=== PATIENT | male | born 1975 | race Caucasian/White ===

== ENCOUNTER 2023-09-23 13:00 | Outpatient (RCR) | payer BC, SELFPAY | END 2024-01-21 23:59 | disposition home or self-care (01) | PROVIDERS: Visit Provider Urology | DX: R39.9 Unspecified symptoms and signs involving the genitourinary system (principal); Z51.89 Encounter for other specified aftercare | CPT/HCPCS: 97110; 97140; 97162 ==

== ENCOUNTER 2024-04-13 06:54 | Emergency (ER) | payer BC, SELFPAY ==
[2024-04-13 06:59] VITALS: BP 141/103; PULSE 72; RESP 16; TEMP 36.2; O2SAT 96; BMI 25.8
--- NOTE | 2024-04-13 07:14 | ED.GENADULT ---
HPI - General Adult General Chief complaint: Syncope/Fainted <Cammy Batista MD - Last Filed: 04/14/24 23:53> Stated complaint: fainted this morning, hit face <Cammy Batista MD - Last Filed: 04/14/24 23:53> Time Seen by Provider: 04/13/24 07:07 <Cammy Batista MD - Last Filed: 04/14/24 23:53> History of Present Illness HPI narrative: 49-year-old male presents the emergency department with inability to open and close his jaw. He reports that he felt nauseated after use of a phosphodiesterase inhibitor and went to the bathroom. He had a syncopal episode and fell to the ground. His heard him fall and attended to him quickly. He was only out a couple of seconds and there was really no evidence of seizure-like activity or any other alarming symptoms. He was able to get up and get back to bed. He has had increasing pain in the jaw area ever since. Reports that this is bilateral. He thinks the jaw could be dislocated. He has no prior history of facial fracture or surgery. He does not take any anticoagulants. No headache or neurological changes. He can swallow but cannot open and close his mouth. Cannot abduct or adduct the jaw either. No ear pain. No chest pain or shortness of breath. No dizziness. No bleeding noted. No pain in other areas like the low back, ribs, abdomen or other joints. Did not tried any interventions at home to help with symptoms. Symptomatic now for about 4-1/2 hours. She reports that his past medical history is benign, no major long-term health problems. Only home medication is p.r.n. sildenafil. No allergies. Nonsmoker. ROS is notable for the syncopal and facial symptoms as described above, otherwise denies times 12 systems. <Cammy Batista MD - Last Filed: 04/14/24 23:53> Related Data Home medications: Home Medications ?Medication ?Instructions ?Recorded ?Confirmed sildenafil (pulm.hypertension) 20 20 - 100 mg PO DAILY PRN 04/13/24 04/13/24 mg tablet <Cammy Batista MD - Last Filed: 04/14/24 23:53> Allergies/adverse reactions: Allergies Allergy/AdvReac Type Severity Reaction Status Date / Time No Known Drug Allergies Allergy Verified 04/13/24 07:05 <Cammy Batista MD - Last Filed: 04/14/24 23:53> Exam Const: Vital Signs, click to edit/add: Vital Signs - 24 hr 04/13/24 06:59 Temperature 97.1 F L Pulse Rate [Pulse Oximeter] 72 Respiratory Rate 16 Blood Pressure [Ri ght Upper Arm] 141/103 H Pulse Oximetry 96 Oxygen Delivery Me thod Room Air <Cammy Batista MD - Last Filed: 04/14/24 23:53> Vital Signs, click to edit/add: Vital Signs - 24 hr 04/13/24 06:59 Temperature 97.1 F L Pulse Rate [Pulse Oximeter] 72 Respiratory Rate 16 Blood Pressure [Ri ght Upper Arm] 141/103 H Pulse Oximetry 96 Oxygen Delivery Me thod Room Air <Lanny Archer MD - Last Filed: 04/13/24 09:05> Documenting provider has reviewed patient's vital signs: yes <Cammy Batista MD - Last Filed: 04/14/24 23:53> Common normals: no apparent distress and alert <Cammy Batista MD - Last Filed: 04/14/24 23:53> General appearance: cooperative and well kempt <Cammy Batista MD - Last Filed: 04/14/24 23:53> Other: Really does seem to have swelling at both mandibular angles. No obvious gross deformity. <Cammy Batista MD - Last Filed: 04/14/24 23:53> HENMT: Common normals: normocephalic, head/scalp atraumatic, TM's normal bilaterally and external nose normal <Cammy Batista MD - Last Filed: 04/14/24 23:53> Head and scalp: normocephalic and atraumatic <Cammy Batista MD - Last Filed: 04/14/24 23:53> Face and sinus: face symmetric; no facial abrasion and no facial ecchymosis <Cammy Batista MD - Last Filed: 04/14/24 23:53> Nose: external nose normal and nares normal <MD Kaye Duran Last Filed: 04/14/24 23:53> Tympanic membrane: TM's normal bilaterally <MD Kaye Duran Last Filed: 04/14/24 23:53> Other: Lips are acyanotic with no obvious frontal dental injuries but he really cannot open the mouth easily and I think it is more prudent to do imaging before forcing that issue. Some bilateral swelling along the angle of the mandible but no obvious crepitus or deformity. Does seem symmetric. <Cammy Batista MD - Last Filed: 04/14/24 23:53> Eye: Common normals: PERRL, EOMs intact bilaterally and conjunctivae normal <MD Kaye Duran Last Filed: 04/14/24 23:53> Conjunctiva: conjunctiva(e) normal <Cammy Batista MD - Last Filed: 04/14/24 23:53> Pupil: PERRL <MD Kaye Duran Last Filed: 04/14/24 23:53> Neck & C-Spine: Common normals: full ROM and no lymphadenopathy <MD Kaye Duran Last Filed: 04/14/24 23:53> General: normal visual inspection <Cammy Batista MD - Last Filed: 04/14/24 23:53> Chest: Common normals: inspection of chest normal and palpation of chest normal <MD Kaye Duran Last Filed: 04/14/24 23:53> Resp: Common normals: normal respiratory effort, no use of accessory muscles and clear to auscultation bilaterally <MD Kaye Duran Last Filed: 04/14/24 23:53> Effort & inspection: able to speak in complete sentences <MD Kaye Duran Last Filed: 04/14/24 23:53> Auscultation: clear to auscultation bilaterally <MD Kaye Duran Last Filed: 04/14/24 23:53> Cardio: Common normals: regular rate, regular rhythm, S1 normal heart sound, S2 normal heart sound and no murmurs <MD Kaye Duran Last Filed: 04/14/24 23:53> Rate: regular rate <MD Kaye Duran Last Filed: 04/14/24 23:53> Rhythm: regular rhythm <MD Kaye Duran Last Filed: 04/14/24 23:53> Heart sounds: S1 normal and S2 normal <MD Kaye Duran Last Filed: 04/14/24 23:53> GI: Common normals: Normal to inspection, nondistended, normoactive bowel sounds present, soft to palpation, non-tender, no hepatosplenomegaly and no masses <MD Kaye Duran Last Filed: 04/14/24 23:53> Palpation: soft and no hepatosplenomegaly <MD Kaye Duran Last Filed: 04/14/24 23:53> Extremity: Common normals: normal to inspection and normal capillary refill <MD Kaye Duran Last Filed: 04/14/24 23:53> Neuro: Common normals: moves all extremities <MD Kaye Duran Last Filed: 04/14/24 23:53> Sensorium/orientation: alert <MD Kaye Duran Last Filed: 04/14/24 23:53> Speech: speech normal <MD Kaye Duran Last Filed: 04/14/24 23:53> Psych: Appearance: well kempt <MD Kaye Duran Last Filed: 04/14/24 23:53> Attitude: engaged <MD Kaye Duran Last Filed: 04/14/24 23:53> Activity/motor behavior: appropriate eye contact <MD Kaye Duran Last Filed: 04/14/24 23:53> Insight: insight good <MD Kaye Duran Last Filed: 04/14/24 23:53> Judgement: judgment good <MD Kaye Duran Last Filed: 04/14/24 23:53> Skin: Common normals: no rashes or lesions noted <Cammy Batista MD - Last Filed: 04/14/24 23:53> General skin exam: no rashes or lesions noted <Cammy Batista MD - Last Filed: 04/14/24 23:53> Course Course ED Course: 49-year-old with syncopal episode after use of sildenafil. Suspect that this was contributory towards the syncopal episode, asymptomatic at this time. No evidence of seizure or major medical illness. Unfortunately this is a pretty common side effect. Patient does seem to have sustained a jaw injury with his syncopal episode. Questioning fracture, dislocation, contusion or other minor injury. I recommended a facial CT. EKG to ensure that there is no underlying cardiac arrhythmia. Await CT findings. There does not seem to be any other evidence of injury to the spine, ribs, other facial features or extremities otherwise at this time. <Cammy Batista MD - Last Filed: 04/14/24 23:53> Reevaluation(s) Time of Reevaluation #1: 08:26 <Lanny Archer MD - Last Filed: 04/13/24 09:05> Reevaluation #1: Have updated patient on his CT. He is alert, interactive. Is able to speak. Jaw seems to be in position and is able to open and mobilize enough for speech. He is not sure where he did want to go to see maxillofacial surgery. Reviewed with them that this is probably out of general oral surgery capacity. Reviewed various local institutions that I can try to call. He really needs to see maxillofacial surgery for definitive management. At this time, his is going to contact someone, they will let me know. They were provided a copy of his CT report. <Lanny Archer MD - Last Filed: 04/13/24 09:05> Time of Reevaluation #2: 09:02 <Lanny Archer MD - Last Filed: 04/13/24 09:05> Reevaluation #2: they have an appointment in [place] with a maxillofacial surgeon at 10:10 a.m. today. Patient will be given small sips of fluids with ibuprofen 600 mg, otherwise advised to be NPO. We have radiology making a disc of his CT. <Lanny Archer MD - Last Filed: 04/13/24 09:05> Vital Signs Vital signs: Initial Vital Signs Temperature 97.1 F L 04/13/24 06:59 Temperature Source Temporal Artery Scan 04/13/24 06:59 Pulse Rate 72 04/13/24 06:59 Respiratory Rate 16 04/13/24 06:59 Blood Pressure 141/103 H 04/13/24 06:59 Blood Pressure Mean 115 H 04/13/24 06:59 Blood Pressure Position Supine 04/13/24 06:59 Pulse Oximetry 96 04/13/24 06:59 Oxygen Delivery Method Room Air 04/13/24 06:59 Vital Signs Temperature 97.1 F L 04/13/24 06:59 Pulse Rate 72 04/13/24 06:59 Respiratory Rate 16 04/13/24 06:59 Blood Pressure 141/103 H 04/13/24 06:59 Pulse Oximetry 96 04/13/24 06:59 Oxygen Delivery Method Room Air 04/13/24 06:59 Temperature 97.1 F L 04/13/24 06:59 Pulse Rate 72 04/13/24 06:59 Respiratory Rate 16 04/13/24 06:59 Blood Pressure 141/103 H 04/13/24 06:59 Pulse Oximetry 96 04/13/24 06:59 Oxygen Delivery Method Room Air 04/13/24 06:59 <Cammy Batista MD - Last Filed: 04/14/24 23:53> Initial Vital Signs Temperature 97.1 F L 04/13/24 06:59 Temperature Source Temporal Artery Scan 04/13/24 06:59 Pulse Rate 72 04/13/24 06:59 Respiratory Rate 16 04/13/24 06:59 Blood Pressure 141/103 H 04/13/24 06:59 Blood Pressure Mean 115 H 04/13/24 06:59 Blood Pressure Position Supine 04/13/24 06:59 Pulse Oximetry 96 04/13/24 06:59 Oxygen Delivery Method Room Air 04/13/24 06:59 Vital Signs Temperature 97.1 F L 04/13/24 06:59 Pulse Rate 72 04/13/24 06:59 Respiratory Rate 16 04/13/24 06:59 Blood Pressure 141/103 H 04/13/24 06:59 Pulse Oximetry 96 04/13/24 06:59 Oxygen Delivery Method Room Air 04/13/24 06:59 Temperature 97.1 F L 04/13/24 06:59 Pulse Rate 72 04/13/24 06:59 Respiratory Rate 16 04/13/24 06:59 Blood Pressure 141/103 H 04/13/24 06:59 Pulse Oximetry 96 04/13/24 06:59 Oxygen Delivery Method Room Air 04/13/24 06:59 <Lanny Archer MD - Last Filed: 04/13/24 09:05> Medications Administered Medications: Discontinued Medications Generic Name Dose Route Start Last Admin Trade Name Freq PRN Reason Stop Dose Admin Ibuprofen 600 mg 04/13/24 09:03 04/13/24 09:15 Ibuprofen 200 Mg Tablet PO 04/13/24 09:04 600 mg ONCE ONE Administration <Cammy Batista MD - Last Filed: 04/14/24 23:53> Discontinued Medications Generic Name Dose Route Start Last Admin Trade Name Freq PRN Reason Stop Dose Admin Ibuprofen 600 mg 04/13/24 09:03 04/13/24 09:15 Ibuprofen 200 Mg Tablet PO 04/13/24 09:04 600 mg ONCE ONE Administration <Lanny Archer MD - Last Filed: 04/13/24 09:05> Medical Decision Making Imaging Data CT- Other: Attestation: I have reviewed the pertinent imaging results. <Lanny Archer MD - Last Filed: 04/13/24 09:05> My impression: Visualize patient CT, do think that I can see condylar fractures bilaterally. Await Radiology over-read. <Lanny Archer MD - Last Filed: 04/13/24 09:05> Radiologist's impression: Patient: SONJA BERG Facility:?[facility] Patient ID:?[id number] Site Patient ID:?[id number]. Site :?[id number] Study:?CT-Facial W/O-04/13/2024 7:55:15 AM Ordering Physician:?Lester Chawla Final Report: INDICATION: Syncope. Fall. Posttraumatic mandibular pain, not otherwise specified. COMPARISON: None available. TECHNIQUE: CT examination of the face without intravenous contrast. Please note that all CT scans at this facility use dose modulation, iterative reconstruction, and/or weight-based dosing when appropriate to reduce radiation dose to as low as reasonably achievable. FINDINGS: Facial Bones: Incomplete nondisplaced left parasymphyseal (lateral to the left mandibular 1st premolar, LL4) mandibular fracture interrupting the lingual cortex of the mandible medial to the left mental foramen (axial series 3; images 30 2-40). The fracture does not extend to the buccal cortex of the left mandible. In addition to this fracture, there is a nondisplaced subchondral fracture of the LEFT mandibular ramus (7; 24) and a similar nondisplaced subcondylar fracture of the contralateral RIGHT mandibular ramus (7; 30). Intact frontal bones. Intact nasal septum. Intact naso-orbitoethmoid complexes. Intact orbital rims and bolton. Intact zygomaticomaxillary complexes. Intact maxillary alveolar ridge. Orbits: Intact globes. No intraorbital hematoma. Sinuses and Skull Base: Visualized paranasal sinuses are clear. Intact skull base. The posterior nasal septum is deviated leftward. There is a left-sided posterior nasal septal spur. Soft Tissues: No significant soft tissue findings. IMPRESSION: 1. Incomplete nondisplaced left parasymphyseal (lateral to the left mandibular 1st premolar, LL4) mandibular fracture interrupting the lingual cortex of the mandible medial to the left mental foramen (axial series 3; images 30 2-40). The fracture does not extend to the buccal cortex of the left mandible. 2. Nondisplaced subcondylar fracture of the LEFT mandibular ramus (7; 24). 3. Nondisplaced subchondral fracture of the RIGHT mandibular ramus (7; 30). 4. Incidental findings as above. Please note that all CT scans at this facility use dose modulation, iterative reconstruction, and/or weight-based dosing when appropriate to reduce radiation dose to as low as reasonably achievable. Dictated by Marlon Nunez MD @ 04/13/2024 8:17:41 AM (Electronic Signature) <Lanny Archer MD - Last Filed: 04/13/24 09:05> ECG Data Attestation: I personally reviewed and interpreted this ECG as follows: <Cammy Batista MD - Last Filed: 04/14/24 23:53> Prior ECG tracings: not available for review <Cammy Batista MD - Last Filed: 04/14/24 23:53> Interpretation: Normal sinus rhythm, rate of 70. No significant ST or T-wave abnormalities. Good R-wave progression. Normal intervals and axis. Normal EKG <Cammy Batista MD - Last Filed: 04/14/24 23:53> Discharge Plan Discharge Clinical Impression: Syncope due to orthostatic hypotension Closed fracture of jaw Qualifiers: Encounter type: initial encounter Qualified Code(s): S02.609A - Fracture of mandible, unspecified, initial encounter for closed fracture <Cammy Batista MD - Last Filed: 04/14/24 23:53> Patient Disposition: Home, Self-Care <Cammy Batista MD - Last Filed: 04/14/24 23:53> Condition: Stable <Cammy Batista MD - Last Filed: 04/14/24 23:53> Instructions: Jaw Fracture in Adults (ED) <Cammy Batista MD - Last Filed: 04/14/24 23:53> Additional Instructions: Need to proceed to the maxillofacial surgery appointment at 10:10 a.m. that you have made for yourself. We did give you ibuprofen here 600 mg with a small sip of water, maintain NPO status until you have been further advised by the surgeon. Please take the disc of the CT as well as the report of the CT to this surgeon. <Cammy Batista MD - Last Filed: 04/14/24 23:53> Prescriptions: No Action sildenafil (pulm.hypertension) 20 mg tablet 20 - 100 mg PO DAILY PRN <Cammy Batista MD - Last Filed: 04/14/24 23:53> Follow Up/Referrals: Provider,Not a Local [Non-Staff] - <Cammy Batista MD - Last Filed: 04/14/24 23:53> Stand Alone Forms: MyHealth Info Instructions <Cammy Batista MD - Last Filed: 04/14/24 23:53>
--- OUTSIDE RECORDS SUMMARY | 2024-04-13 07:21 | XMS_ITS | Data Portability ---
Author Organization [place] [facility] [place] [facility] Address [address] [place] [address] Care Team Providers Care Fire Hose Curer Name Role Phone GRACY HOUSE Referring Provider Assessment Encounter Date Assessment Date Assessment LastModified by Organization Details LastModified Time 05/15/2023 05/15/2023 48 year old male with a right sided varicocele, scrotal contents pain, and lower urinary tract symptoms. Not available 05/15/2023 09:04:11 Plan of Treatment Reminders Order Date Submit Date Provider Last Modified By Organization Details Last Modified Time Details Appointments None recorded. Lab None recorded. Referral physical therapist referral - Pelvic floor physical therapy. / Please call patient to schedule Pelvic Floor Physical Therapy. Thank you 2023 024 [email or web address] [facility], [address], [place], [address], 14:29:12 Procedures None recorded. Surgeries None recorded. Imaging US, duplex, abdomen + pelvis, complete - please contact pt to schedule . thanks 2023 024 amea [facility], [address], [address], [place], [address], 08:57:24 Medication Orders None recorded. Patient TargetsNo targets recorded. Patient Instructions Encounter Date Encounter Id Patient Instructions Last Modified By Organization Details Last Modified Time 05/15/2023 [id number] Right varicocele : This does sound chronic, but we discussed that current recommendations support abdominal imaging to rule out a retroperitoneal mass. I have low suspicion, but we will check an abdominal ultrasound. I do not suspect that this is the cause of his other symptoms though. Scrotal contents pain/lower urinary tract symptoms: I suspect this is related to pelvic floor dysfunction that has likely been exacerbated by recent increase in physical activity and likely has a chronic component. I recommend a course of pelvic floor physical therapy. He hasn't started the prescribed tamsulosin yet but again I think that prostate enlargement/prostat itis are unlikely given his exam and other findings. I will seen him 12 weeks to see how he has responded. Not available 05/15/2023 09:07:07 Reason for Referral Physical Therapist Referral for Lower urinary tract symptoms Pelvic floor physical therapy. / Please call patient to schedule Pelvic Floor Physical Therapy. Thank you Referring Physician: David Jones, Urology, Encounter Date: 05/15/2023 Results Created Date Observation Date Name Description Value Unit Range Abnormal Flag Note LastModifiedBy Organization Detail LastModifiedTime 05/07/19 24 04/08/2023 imagi ng/di agnos tic resul t No observ ation record ed. [email or web address] Not Available 2023 07:50:31 05/21/19 24 05/21/2023 US, abdom en, compl ete No observ ation record ed. [facility] [place] [address], [address], 05/21/2023 16:26:59 05/21/19 24 05/21/2023 US, pelvi s, compl ete No observ ation record ed. [facility] [place] [address] [address] [facility] [address], [place], [address], 05/24/2023 16:09:53 Result Notes None recorded. Problems Name Problem SNOMED Code Status Onset Date Resolution Date Notes Provider Name and Address Organization Details Recorded Time Hyperlipidemia 17385123 Active 2023 Bon goddard [facility] 4 09:15:46 Erectile dysfunction 202328904 Active 2023 FUAD [facility] 4 09:15:55 Onychomycosis 065713946 Active 2023 Bon Fullermanuela goddard [facility] 4 09:16:01 Problem Notes None recorded. Procedures Surgical History Date Name Laterality Status Provider Name and Address Organization Details Recorded Time 4 COMPLEX VISIT completed David Jones MD [address] [place] [address],[facility] [address], [place], [address], [facility] 05/14/2023 16:39:45 4 Past Data Reviewed completed David Jones MD [address] [place] [address],[address], [address], [facility] 05/14/2023 16:39:40 Hernia repair w/mesh completed Not Available Health Note 05/11/2023 11:38:19 Removal of sperm duct(s) completed Not Available Health Note 05/11/2023 11:38:19 Imaging Results Imaging Date Name Status LastModified by Organiz ation Details LastModified Time 04/08/2023 imaging/diagn ostic result completed [email or web address] Information not available 05/07/2023 07:50:31 05/21/2023 US, abdomen, complete completed [facility] [place] [address] [place] [address], [address], 05/21/2023 16:26:59 05/21/2023 US, pelvis, complete completed [facility] [place] [address], [address], 05/24/2023 16:09:53 Procedure Notes None recorded. Medical Equipment None Reported. Allergies No known drug allergies Medications Name Sig Start Date Stop Date Status Note LastModified by Organization Details LastModified Time sulfamethoxazol e 800 mg-trimethoprim 160 mg tablet 800mg/16 0mg 2/day active Not Available Not Available No t Available tamsulosin 0.4 mg capsule TAKE 1 CAPSULE (0.4 MG) BY MOUTH EVERY DAY WITH FOOD active Not Available Not Available No t Available Vitals Date Recorded Body weight Body mass index (BMI) Body height Provider Name and Address Organization Details Last Updated DateTime 05/15/2023 88568.79208 74309 g 26.5 kg/m2 180.34 cm Not Available Health Note 05/15/2023 08:50:17 Social History Question Answer Notes LastModified by Organizat ion Details LastModified Time Tobacco Smoking Status Never Smoker Not Available Health Note 05/11/2023 11:38:20 What Is Your Level Of Alcohol Consumption? None Information not available 05/15/2023 What Is Your Level Of Caffeine Consumption? Moderate [email or web address] Information not available 05/11/2023 How Much Tobacco Do You Chew? None [email or web address] Information not available 05/11/2023 Do You Or Have You Ever Used E-cigarettes Or Vape? Never Used Electronic Cigarettes [email or web address] Information not available 05/11/2023 What Was The Date Of Your Most Recent Tobacco Screening? 05/15/2023 [email or web address] Information not available 05/11/2023 What Is Your Relationship Status? [email or web address] Information not available 05/11/2023 Are You Sexually Active? Yes [email or web address] Information not available 05/11/2023 Do You Or Have You Ever Used Smokeless Tobacco? Never Used Smokeless Tobacco [email or web address] Information not available 05/11/2023 Do You Use Any Illicit Or Recreational Drugs? No [email or web address] Information not available 05/11/2023 Has Tobacco Cessation Counseling Been Provided? No Information not available 05/15/2023 Do You Or Have You Ever Used Any Other Forms Of Tobacco Or Nicotine? No Information not available 05/15/2023 How Many Days In The Past Year Have You Consumed 5 Or More Drinks? 0 [email or web address] Information no t available 05/11/2023 Sex: Unknown Functional Status None recorded. Mental Status None recorded. Family History Relationship Description Onset Age of this Age Resolved Age Notes LastModified by Organization Details LastModified Time Father Family history of renal stone [email or web address] Not available 04/13 11:38:18 Maternal Grandfather Family history of malignant neoplasm of prostate 45 [email or web address] Not available 2023 11:38:18 Medical History Condition Response High Blood Pressure N Kidney Stones N Lung Disease N Depression N GERD/Acid Reflux N Sexually Transmitted Infection N Diabetes N Bleeding Disorder N Cancer N High Cholesterol N Heart Disease N Immunizations Vaccine Type Date Status Note Provider Nam e and Address Organization Details Recorded Time SARS-COV-2 (COVID-19) vaccine, UNSPECIFIED completed Not Available Health Note 05/11/2023 11:38:22 Past Encounters Encounter ID Performer Location Encounter Start Date Encounter Closed Date Diagnosis/Indication Diagnosis SNOMED-CT Code Diagnosis ICD10 Code Diagnosis Note [id number] David Jones MD [facility] [address] [place] [address],[address] [place] [phone] 05/15/2023 08:49:54 05/15/2023 09:14:10 Pain in scrotum 93970034 N50.82 Varicocele 31657749 I86. 1 Lower urin arturo tract symptoms 970439687 R39.9 Health Concerns Section Related Observation LastModified by Organization Detai ls LastModified Time None Recorded Concern Status LastModified by Organization Details LastModified Time None Recorded Advance Directives Directive None Recorded Payers Encounter Date Sequence Insurance Name Policy Number Policy Champion Covered Member ID Champion Member ID Guarantor Name 05/15/2023 1 [place] [id number] Sukhjinder Nelson [id number] Sukhjinder Nelson Notes Date Note Type Note Provider Name and Address Organization Details Recorded Time 05/15/2023 text/html This is a 48 yea r old male who is referred by Dr. House for the evaluation and management of scrotal contents pain and lower urinary tract symptoms. He has had persistent right groin pain for the last 10 years.He has been extensively evaluated for a hernia and other causes which have so far been negative.He recently became more physically active and noted his symptoms worsened acutely with pain radiating down into his right testicle.He underwent a scrotal ultrasound on 04/08/2023 which revealed a right sided varicocele but was otherwise unremarkable. He has also been experiencing worsening acute lower urinary tract symptoms.He was treated empirically for suspected prostatitis with a course of Bactrim.His symptoms persisted and he has been prescribed a course of tamsulosin 0.4 mg daily by his primary care physician.He underwent a urine analysis on 04/25/2023 which was normal. His most recent prostate specific antigen was 1.25 ng/mL (04/25/2023). David Jones MD [address] [facility] [address],[address], [place], [address], [facility] 05/15/2023 09:07:42
--- OUTSIDE RECORDS SUMMARY | 2024-04-13 07:22 | XMS_ITS | Clinical Summary ---
Author Organization [facility] Address [address] [place] [address] Care Team Providers Care Dinkey Motor Operator Name Role Phone Zi House MD Primary Care Provider [phone] Allergies No known active allergies Medications sildenafiL, pulm.hypertensio n, (REVATIO) 20 mg tabletIndication s:Erectile dysfunction, unspecified erectile dysfunction type Take 1-5 Tablets (20-100 mg) by mouth once daily if needed (For Sex). Take 30 minutes to 4 hours before sexual activity. Max 100mg/24hr. 30 Tablet 11 4 Active polyethylene glycol-electroly te (GOLYTELY) 236-22.74-6.74 -5.86 gram suspensionIndica tions:Encounter for screening colonoscopy Drink 2 liters the day before the procedure and 2 liters 6 hours prior to procedure. 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 Onychomycosis of toenails 02/13/2022 Encounters Date Type Department Care Team Description 03/09/2024 7:00 AM SCHOOL PSYCHOLOGY SPECIALIST Office Visit [facility] [address] [place] [id number] Zi House MD Physical (Age 49); Musculoskeletal Problem (Recheck RIGHT low back pain) 03/09/2024 Telephone [facility] [address] [place] [address] Ruben Muhammad MD Screening 03/09/2024 Travel 03/04/2024 Travel from Last 3 Months Immunizations Name Administration Dates Next Due Influenza, IIV4 (=>6mos) MDV 11/13/2019 Td (Age >=7 Years) 06/05/2002 Tdap 02/13/2022,12/13/2011,11/11/2008 Family History Medical History Relation Name Comments Hypothyroidism Father Cancer-prostate Maternal Grandfather Cancer-prostate Maternal Uncle Macular degeneration Mother Heart attack Paternal Grandfather Heart Disease Paternal Grandmother Cancer-colon No Family History Diabetes No Family History Relation Name Status Comments Father Maternal Grandfather Maternal Uncle Mother Paternal Grandfather Paternal Grandmother Social History Tobacco Use Types Packs/Day Years Used Date Smoking Tobacco: Never Smokeless Tobacco: Never Tobacco Cessation:Counseling Given: Yes Alcohol Use Standard Drinks/Week Comments Yes 0 (1 standard drink = 0.6 oz pur e alcohol) rare PHQ-2 Answer Date Recorded PHQ-2 TOTAL SCORE 0 03/09/2024 Social Connections Answer Date Recorded Do you often feel lonely or isolated from those around you? 0 04/25/2023 Financial Resource Strain Answer Date R ecorded Difficulty of Paying Living Expenses 3 04/25/2023 Difficulty of Paying Living Expenses Not on file 04/25/2023 Food Insecurity Answer Date Recorded Do you worry your food will run out before you are able to buy more? 1 04/25/2023 Transportation Needs Answer Date Record ed Does lack of transportation keep you from medica l appointments? 1 04/25/2023 Does lack of transportation keep you from work, meetings or getting things that you need? 1 04/25/2023 Housing Stability Answer Date Recorded What is your housing situation today? 1 04/25/2023 Utilities Answer Date Recorded Do you have trouble paying f or utilities (for example, heat, electricity, water, phone)? 1 04/25/2023 Sex and Gender Information Value Date Recorded Sex Assigned at Not on file Legal Sex Male 7:41 AM SCHOOL PSYCHOLOGY SPECIALIST Gender Identity Not on file Sexual Orientation Not on file Obstetrics History Last Filed Vital Signs Vital Sign Reading Time Taken Comments Blood Pressure 122/86 03/09/2024 7:33 AM SCHOOL PSYCHOLOGY SPECIALIST Pulse 74 03/09/2024 7:05 AM SCHOOL PSYCHOLOGY SPECIALIST Temperature 36.8 C (98.2 F) 03/19/2016 3:44 PM SCHOOL PSYCHOLOGY SPECIALIST Respiratory Rate - - Oxygen Saturation 98% 03/09/2024 7:05 AM SCHOOL PSYCHOLOGY SPECIALIST Inhaled Oxygen Concentration - - Weight 85.6 kg (188 lb 12.8 oz) 03/09/2024 7:05 AM SCHOOL PSYCHOLOGY SPECIALIST Height 180.3 cm (5' 11) 03/09/2024 7:05 AM SCHOOL PSYCHOLOGY SPECIALIST Body Mass Index 26.33 03/09/2024 7:05 AM SCHOOL PSYCHOLOGY SPECIALIST Plan of Treatment Upcoming Encounters Date Type Department Care Team (Late st Contact Info) Description 04/22/2024 2:00 PM CDT Appointment [facility]/EEG/EP [address] [address] Vishal Nance MD [address] [place] [address] 07/27/2024 7:00 AM CDT Office Visit [facility] [address] [place] [address] Zi House MD [address] [place] [address] 07/31/2024 7:15 AM CDT Office Visit [facility] [address] [place] [address] Ruben Muhammad MD [address] [place] [address] Health Maintenance Due Date Last Done Comments Colonoscopy through age 75 2022 COVID-19 vaccine series ( season) 2023 06/22/2020, 06/01/2020 Influenza for age 9-49 10/13/2023 11/13/2019 BMI (ht and wt on same day) for age 18+ 03/09/2025 03/09/2024, 03/22/2022, 03/13/2022, Additional history exists Depression screening for age 12+ 03/09/2025 03/09/2024, 03/09/2024, 02/13/2022, Additional history exists Lipids for age 45-75 03/09/2029 03/09/2024, 04/25/2023, 02/13/2022, Additional history exists Tetanus booster 02/14/2032 02/13/2022, 02/2011, 12/13/2011, Additional history exists HIV for age 15-65 Completed 02/13/2022 Hepatitis C screening for age 18-79 Completed 02/13/2022 Tdap Completed 02/13/2022, 02/2011, 11/11/2008 Pneumococcal series for age 6-49 Aged Out No longer eligible based on patient's age to complete this topic Procedures Procedure Name Priority Date/Time Associated Diagnosis Comments LIPID PANEL W REFLEX MEASURED LDL Routine 03/09/2024 8:16 AM SCHOOL PSYCHOLOGY SPECIALIST Screening cholesterol level GLUCOSE, FASTING Routine 03/09/2024 8:16 AM SCHOOL PSYCHOLOGY SPECIALIST Screening for diabetes mellitus TESTOSTERONE,TOTAL Routine 03/09/2024 8: 16 AM SCHOOL PSYCHOLOGY SPECIALIST Erectile dysfunction, unspecified erectile dysfunction type Decreased libido TSH WITH REFLEX Routine 03/09/2024 8:16 AM SCHOOL PSYCHOLOGY SPECIALIST Decreased libido LC HIV-1/O/2, 4TH GENERATION Routine 02/13/2022 4:22 PM SCHOOL PSYCHOLOGY SPECIALIST Encounter for screening for HIV LC HCV ANTIBODY RFX TO QUANT PCR Routine 02/13/2022 4:22 PM SCHOOL PSYCHOLOGY SPECIALIST Need for hepatitis C screening test from Last 3 Months or Most Recently Relevant to Health Maintenance Results * TSH WITH REFLEX (03/09/2024 8:16 AM SCHOOL PSYCHOLOGY SPECIALIST) TSH W/REFLEX TO FT4 3.73 0.40 - 4.50 mIU/L [facility] Blood BLOOD SPECIMEN / Unknown 03/09/2024 8:16 AM SCHOOL PSYCHOLOGY SPECIALIST 03/09/2024 8:16 AM SCHOOL PSYCHOLOGY SPECIALIST us Zi House MD CHEMISTRY Final Res ult Performing Organization Address [facility]/ZIP Co de Phone Number [facility] [address] [place] [address], [facility] [address] [place] [address] * (ABNORMAL) LIPID PANEL W REFLEX MEASURED LDL (03/09/2024 8:16 AM SCHOOL PSYCHOLOGY SPECIALIST) CHOLESTEROL, TOTAL 227(H) <200 mg/dL [facility] HDL CHOLESTEROL 50 > OR = 40 mg/dL [facility] TRIGLYCERIDES 100 <150 mg/dL [facility] LDL-CHOLESTEROL 156(H) mg/dL (calc) [facility] Comment: Reference range: <100 Desirable range <100 mg/dL for primary prevention; <70 mg/dL for patients with CHD or diabetic patients with > or = 2 CHD risk factors. LDL-C is now calculated using the Ruben-Candice calculation, which is a validated novel method providing better accuracy than the Friedewald equation in the estimation of LDL-C. Ruben SS et al. TOMMY. 2013;310(19): 5732-9815 (http://education.Savedaily/faq/EKA739) CHOL/HDLC RATIO 4.5 <5.0 (calc) [facility] NON HDL CHOLESTEROL 177(H) <130 mg/dL (calc) [facility] Comment: For patients with diabetes plus 1 major ASCVD risk factor, treating to a non-HDL-C goal of <100 mg/dL (LDL-C of <70 mg/dL) is considered a therapeutic option. Blood BLOOD SPECIMEN / Unknown 03/09/2024 8:16 AM SCHOOL PSYCHOLOGY SPECIALIST 03/09/2024 8:16 AM SCHOOL PSYCHOLOGY SPECIALIST Zi House MD CHEMISTRY Final Res ult Performing Organization Address City/[facility]/ZIP Co de Phone Number [facility] [address] [place] [address], [facility] [address] [place] [address] * GLUCOSE, FASTING (03/09/2024 8:16 AM SCHOOL PSYCHOLOGY SPECIALIST) GLUCOSE 95 65 - 99 mg/dL [facility] Comment: Fasting reference interval Blood BLOOD SPECIMEN / Unknown 03/09/2024 8:16 AM SCHOOL PSYCHOLOGY SPECIALIST 03/09/2024 8:16 AM SCHOOL PSYCHOLOGY SPECIALIST Zi House MD CHEMISTRY Final Res ult [facility] [address] [place] [address], [facility] [address] [place] [address] * TESTOSTERONE,TOTAL (03/09/2024 8:16 AM SCHOOL PSYCHOLOGY SPECIALIST) TESTOSTERONE, TOTAL, [place] 434 250 - 1,100 ng/dL [facility] Comment: For additional information, please refer to https://education.Skyepack/faq/TotalTestosteroneLCMSMS (This link is being provided for informational/educational purposes only.) (Note) This test was developed and its analytical performance characteristics have been determined by [facility]. It has not been cleared or approved by the FDA. This assay has been validated pursuant to the CLIA regulations and is used for clinical purposes. [facility] [address] [address],[address] [place] [id number] Archana Hopper MD, PhD Blood BLOOD SPECIMEN / Unknown 03/09/2024 8:16 AM SCHOOL PSYCHOLOGY SPECIALIST 03/09/2024 8:16 AM SCHOOL PSYCHOLOGY SPECIALIST Zi House MD CHEMISTRY Final Res ult [facility] [address] [place] [address], [facility] [address] [place] [address], [address] [place] [address] * LC HCV ANTIBODY RFX TO QUANT PCR (02/13/2022 4:22 PM SCHOOL PSYCHOLOGY SPECIALIST) [facility] HCV Ab <0.1 0.0 - 0.9 s/co ratio 02/16/2022 4:07 PM SCHOOL PSYCHOLOGY SPECIALIST [facility] ([facility]) Blood BLOOD SPECIMEN / Unknown Venipuncture / Unknown 02/13/2022 4:22 PM SCHOOL PSYCHOLOGY SPECIALIST 02/13/2022 4:26 PM SCHOOL PSYCHOLOGY SPECIALIST Narrative [facility] ([facility]) - 02/16/2022 4:07 PM SCHOOL PSYCHOLOGY SPECIALIST Performed at: [address] [place] [id number] Business Systems Architect: Hansel Reed MD, Phone: [phone] Gentry Dowling MD LABORATORY Final Result Performing Organization Address [facility] de Phone Number [facility] ([facility]) [address] [place] [address] * HIV-1/O/2, 4TH GENERATION (02/13/2022 4:22 PM SCHOOL PSYCHOLOGY SPECIALIST) [facility] HIV Scr 4th Gen Non Reactive Non Reactive 02/16/2022 9:09 AM SCHOOL PSYCHOLOGY SPECIALIST [facility] ([facility]) Comment: HIV Negative HIV-1/HIV-2 antibodies and HIV-1 p24 antigen were NOT detected. There is no laboratory evidence of HIV infection. Blood BLOOD SPECIMEN / Unknown Venipuncture / Unknown 02/13/2022 4:22 PM SCHOOL PSYCHOLOGY SPECIALIST 02/13/2022 4:26 PM SCHOOL PSYCHOLOGY SPECIALIST Narrative [facility] ([facility]) - 02/16/2022 9:09 AM SCHOOL PSYCHOLOGY SPECIALIST Performed at: [address] [place] [id number] Business Systems Architect: Hansel Reed MD, Phone: [phone] Gentry Dowling MD LABORATORY Final Result Performing Organization Address [facility]/State/ZIP Co de Phone Number [facility] ([facility]) [address] [place] [address], from Last 3 Months or Most Recently Relevant to Health Maintenance Insurance [facility] Care Teams Dinkey Motor Operator Relationship Specialty Start Date End Date Zi House MD [address] [place] [address] PCP - General Family Practice 03/09/24
[2024-04-13] MEDS: IBUPROFEN 200 MG TABLET 600 MG PO (09:15)
== END 2024-04-13 09:26 | disposition home or self-care (01) ==
PROVIDERS: Emergency Provider Family Medicine; PCP Family Medicine
DX: R55 Syncope and collapse (principal); I95.9 Hypotension, unspecified; S02.609A Fracture of mandible, unspecified, initial encounter for closed fracture
CPT/HCPCS: 70486; 99284; A9270